=== PATIENT | female | born 1975 | race Caucasian/White ===

== ENCOUNTER → 2018-06-05 16:15 | Outpatient (CLI) | payer BC, SELFPAY ==
[2018-06-10 09:50] LABS: HPV Reflexed? NOT INDICATED
== END ==
PROVIDERS: Visit Provider Obstetrics & Gynecology
DX: Z12.4 Encounter for screening for malignant neoplasm of cervix (principal)
CPT/HCPCS: 88175; G0145

== ENCOUNTER → 2020-07-20 | Outpatient (CLI) | payer BC, SELFPAY ==
[2016-10-27 04:49] VITALS: BMI 29.2
[2020-07-25 18:04] LABS: HPV Reflexed? NOT INDICATED
== END | disposition home or self-care (01) ==
LOC: LABSPEC 07-21 08:52
PROVIDERS: Visit Provider Obstetrics & Gynecology
DX: Z12.4 Encounter for screening for malignant neoplasm of cervix (principal)
CPT/HCPCS: 88175; G0145

== ENCOUNTER → 2021-10-05 06:58 | Outpatient (CLI) | payer BC, SELFPAY ==
--- NOTE | 2021-10-05 07:02 | BI_ITS ---
MAMMOGRAPHY - BILATERAL SCREENING REASON FOR EXAM: Female, 46 years old. Routine annual screening examination. PERTINENT HISTORY: Non-contributory. TECHNIQUE: Digital bilateral breast andrez (3D mammographic acquisition) in the CC and MLO projections. 2-D mediolateral oblique (MLO) and craniocaudad (CC) views of both breasts were obtained. CAD: Full Field Digital Mammography with Computer Added Detection was performed. COMPARISON: None. Baseline examination. FINDINGS: Breast Composition: The breasts are heterogeneously dense, which may obscure small masses. There are no dominant masses or suspicious calcifications. No other significant abnormalities are identified. BI/SCRN MAMM (CAD)W/ANDREZ BILAT IMPRESSION: Negative screening mammogram. Yearly followup mammogram recommended. (A) ASSESSMENT CATEGORY: BIRADS Category 1: Negative. A letter regarding these results will be sent to the patient by the facility within 30 days. Approximately 10% of breast cancers are not detected by mammography. A normal mammogram should not delay biopsy of a clinically suspicious abnormality. [id number] Electronically Signed: Jonh Sanchez MD at 8:27 EST , Service support ,
== END ==
PROVIDERS: PCP Obstetrics & Gynecology; Referring Provider Obstetrics & Gynecology; Visit Provider Obstetrics & Gynecology
DX: Z12.31 Encounter for screening mammogram for malignant neoplasm of breast (principal)
CPT/HCPCS: 77063; 77067

== ENCOUNTER → 2022-10-19 | Outpatient (CLI) | payer BC, SELFPAY ==
--- NOTE | 2022-10-19 07:17 | BI_ITS ---
MAMMOGRAPHY - BILATERAL SCREENING REASON FOR EXAM: Female, 47 years old. Routine annual screening examination. PERTINENT HISTORY: Non-contributory. TECHNIQUE: Digital bilateral breast andrez (3D mammographic acquisition) in the CC and MLO projections. 2-D mediolateral oblique (MLO) and craniocaudad (CC) views of both breasts were obtained. CAD: Full Field Digital Mammography with Computer Added Detection was performed. COMPARISON: Comparison is made with prior study dated 10/05/2021. FINDINGS: Breast Composition: The breasts are heterogeneously dense, which may obscure small masses. There are no dominant masses or suspicious calcifications. No other significant abnormalities are identified. There has been no significant change since the prior study. BI/SCRN MAMM (CAD)W/ANDREZ BILAT IMPRESSION: Stable bilateral screening mammogram. Yearly follow-up mammogram recommended. (A) ASSESSMENT CATEGORY: BIRADS Category 1: Negative. A letter regarding these results will be sent to the patient by the facility within 30 days. Approximately 10% of breast cancers are not detected by mammography. A normal mammogram should not delay biopsy of a clinically suspicious abnormality. [id number] Electronically Signed: Jonh Sanchez MD at 9:10 EST ,
== END | disposition home or self-care (01) ==
LOC: OPBI 07:14
PROVIDERS: PCP Student in an Organized Health Care Education/Training Program; Visit Provider Student in an Organized Health Care Education/Training Program
DX: Z12.31 Encounter for screening mammogram for malignant neoplasm of breast (principal)
CPT/HCPCS: 77063; 77067

== ENCOUNTER → 2025-01-19 | Outpatient (CLI) | payer BC, SELFPAY | END | disposition home or self-care (01) | LOC: LABSPEC 09:31 | PROVIDERS: PCP Student in an Organized Health Care Education/Training Program; Visit Provider Physician Assistant | DX: R30.0 Dysuria (principal) | CPT/HCPCS: 87086; 87088 ==

== ENCOUNTER → 2025-08-30 | Outpatient (CLI) | payer BC, SELFPAY ==
[2025-09-01 11:08] LABS: HPV APTIMA, High Risk Negative (Negative)
== END | disposition home or self-care (01) ==
LOC: LABSPEC 11:43
PROVIDERS: PCP Student in an Organized Health Care Education/Training Program; Visit Provider Obstetrics & Gynecology
DX: Z12.4 Encounter for screening for malignant neoplasm of cervix (principal)
CPT/HCPCS: 87624; 88175; G0145

== ENCOUNTER → 2025-10-05 | Outpatient (CLI) | payer BC, SELFPAY ==
--- OUTSIDE RECORDS SUMMARY | 2025-10-05 07:17 | XMS RPT_ITS | CCD ---
Author Organization [facility] Care Team Providers Care Apprentice Photographer Name Role Phone Dr. Danelle Rajan DO Primary Care Provider Dr. Danelle Rajan DO Referring Provider [phone] Daniel Warner Attending Provider [phone] Danelle Rajan Primary Care Unavailable Danelle Rajan Referring Unavailable Daniel Warner Attending Unavailable Gabriela Rodriguez Attending Unavailliv e Danelle Rajan Primary Care Unavailable Danelle Rajan Referring Unavailable Danelle Rajan Primary Care Unavailable Daniel Warner Attending Unavailable Allergies Allergy Classification Reported Allergen(s) Allergy Type Date of Onset Reaction(s) Facility (1 source) Penicillins Allergy to substance [address] [facility] (2 sources) Environmental Allergies: Uncoded; Translations: [Environmental Allergies: Uncoded] Allergy to substance 5 Other [facility] (1 source) Adhesive agent Drug allergy (disorder) 5 [facility] Repository (1 source) Penicillins Drug allergy (disorder) [address] [place] [address] Repository Medications Current Medications Medication Drug Class(es) Dates Sig (Normalized) Sig (Original) ELDERBERRY FRUIT (1 source) Start: 01-19-2025 Elderberry Fruit 350 mg capsule Active mg PO January 19, 2025 12:00am Multivitamin (Multiple Vitamins) 1 EACH tablet (1 source) Start: 10-27-2016 take 1 tablet by mouth once daily Multivitamin (Multiple Vitamins) 1 EACH tablet Active 1 NMA PO DAILY October 27, 2016 1:00am Problems Problem Classification Problem Date Documented Da te Episodic/Chronic Genitourinary symptoms and ill-defined conditions (3 sources) Increased frequency of urination; Translations: [Frequency of micturition] Onset: 05-11-2025 01-19-2025 Episodic Results Test Name Value Interpretation Reference Range Facility Urine Cultureon 01-20-2025 [facility] Below infection level. Mixed Gram Pos Gram Neg Org [place] Count 1000-10,000 [facility] Mixed contaminants. Submit a new specimen if indicated. Normal [facility] Comment on above: Performed By: #### M 100.2200 #### [facility] [address] [place], [place], [address] Laboratory - Chemistry and C hemistry - challengeOrdered By: Daniel Mckeon on 01-19-2025 Bilirubin Ql (U) Negative [facility] Glucose Ql (U) Negative [facility] Ketones Ql (U) Negative [facility] pH (U) 7.0 [pH] [facility] Specific gravity (U) [Rel density] 1.010 [facility] Urobilinogen (U) [Mass/Vol] 0.0126493 mg/dL [facility] - Hematology and Cell countsOrdered By: Daniel Mckeon on 01-19-2025 Hemoglobin Ql (U) Negative [facility] - Specimen inform ationOrdered By: Daniel Mckeon on 01-19-2025 Clarity (U) Clear [facility] Color (U) YELLOW [facility] - UrinalysisOrder ed By: Daniel Mckeon on 01-19-2025 Nitrite Ql (U) Negative [facility] Protein Ql (U) Negative [facility] No Panel InformationOrdered By: Daniel Mckeon on 01-19-2025 Urine Leukocytes Negatve [facility] Urine Non-Hemolyzed Blood Negative [facility] Urgent Care Visit Reporton 0 01-19-2025 Urgent Care Visit Report [facility] [address], [address] [place], [place] [address] OFFICE VISIT Date of Service: 01/19/25 MR#: [id number] Acct: [id number] Name: MARLENE ANTONIO Rep #: [id number] : 1975 Provider: LILA Rubio Age/Sex: 49/F Location: [facility] Status: Signed Intake Vital Signs 01/19/25 06:12 Height 5 ft 4 in Weight: 190 lb 8 oz BMI 32.7 BP 120/80 Position Sitting Pulse 83 Temp 98.3 F Temp Source Oral Pulse Oximetry (%) 97 Oxygen Delivery Method room air Intake Visit Reasons: Urinary tract infection Accompanied by: Self Allergies Environmental Allergies: Uncoded (seasonal) Allergy (Verified 01/19/25 06:10) Other Penicillins Allergy (Verified 01/19/25 06:10) Hives Medications ???Medication ???Instructions ???Recorded ???Confirmed ???Type multivitamin (Multiple Vitamins 1 ea PO DAILY 10/27/16 01/19/25 Hi story tablet) elderberry fruit 350 mg capsule mg PO 01/19/25 01/19/25 History Nurse's Note: Patient has frequent urination with discomfort in the lower back. Patient also extremely tired. Patient states this has been going on since last sat. PFSH Medical History (Updated 01/19/25 @ 06:51 by Daniel SHARP, PA) Urinary frequency Surgical History (Updated 01/19/25 @ 06:12 by Smitha Borrego MA) Hx of cholecystectomy History of hernia surgery Social History (System 05/29/19 @ 15:28 by Barb Campbell) Smoking Status: Never smoker HPI HPI Details: MARLENE ANTONIO, is a 49 F who presents to the office today for initial evaluation at [facility] for 6 day h/o frequent urination, fatigue, with discomfort in the lower back. Pt notes inability to find comfortable position when lying down. Pt notes having had kidney stone 30 yrs ago, w/ today's complaints comparable to then. No c/o fever, chills, sweats, changes on color/ character of urine or stool, and no new urethral/ vaginal discharge. No complaints of chest pain or shortness of breath or dyspnea on exertion. No suyd-sos-qeizmlw products taken to assist. No other associated symptoms and no relieving/aggravatin g factors. ROS Const Constitutional: No other (As above) Exam Const General: cooperative, healthy appearing and no acute distress Orientation: alert and awake [facility] Head: normal to inspection Ears: hearing grossly normal bilaterally and external ears normal Nose: external nose normal Neck Neck: normal visual inspection and no meningeal signs Chest Chest palpation inspection: normal inspection of the chest Resp Effort Inspection: normal respiratory effort and able to speak in complete sentences Cardio Rate: regular rate Pulses: radial pulses present GI Inspection: normal to inspection General: No CVA tenderness Skin General: no rashes or lesions noted Neuro General: patient alert and patient awake Cognition: normal cognition Speech: speech normal Psych Appearance: grossly normal Mental Status: mental status grossly normal Mood: congruent mood Affect: normal affect Speech and Movement: speech and movement normal Attitude: cooperative Results POC Urinalysis Dip (Clinic) Office Urine Color YELLOW Last Edit by Smitha Borrego MA on 01/19/25 06:24 Office Urine Clarity Clear Last Edit by Smitha Borrego MA on 01/19/25 06:24 Office Urine Glucose Negative Last Edit by Smitha Borrego MA on 01/19/25 06:24 Office Urine Ketones Negative Last Edit by Smitha Borrego MA on 01/19/25 06:24 Off Ur Spec [place] 1.010 Last Edit by Smitha Borrego MA on 01/19/25 06:24 Office Urine pH 7.0 Last Edit by Smitha Borrego MA on 01/19/25 06:24 Office Urine Bilirubin Negative Last Edit by Smitha Borrego MA on 01/19/25 06:24 Office Urine Urobilinogen 0.2 mg/dL Last Edit by Smitha Borrego MA on 01/19/25 06:24 Office Urine Blood Negative Last Edit by Smitha Borrego MA on 01/19/25 06:24 Office Urine Blood Hemolyzed Negative Last Edit by Smitha Borrego MA on 01/19/25 06:24 Office Urine Protein Negative Last Edit by Smitha Borrego MA on 01/19/25 06:24 Office Urine Nitrate Negative Last Edit by Smitha Borrego MA on 01/19/25 06:24 Off Ur Leukocytes Negatve Last Edit by Smitha Borrego MA on 01/19/25 06:24 Coding Level of Care Code Off vis,new,level 2 Diagnoses Urinary frequency R35.0 Assessment and Plan Assessment and Plan (1) Urinary frequency: Status: Acute Plan: Unremarkable urinalysis dip in office today; urine sent to lab for culture and sensitivity. Supportive measures as instructed today. Should symptoms persist, follow-up with PCP first available appointment and report to ED sooner should symptoms only worsen or any other concerns develop. Patient states acknowledging understanding all the above. This note was generated with Dragon dictation software. It may contain incor (more content not included)... Normal [facility] Urine cultureOrdered By: Camacho Mckeon on 01-19-2025 Bacteria identified Cx Nom (U) Mixed Gram Pos & Gram Neg Org Abnormal [facility] Vital Signs Date Time Vital Sign Value Performing Clinician Araceli nicholas 01-19-2025 06:12-0400 Body height 162.[address] Danelle Rajan DO Work Phone: [facility] 01-19-2025 06:12-0400 Body mass index (BMI) [Ratio] 32.7 kg/m2 Dr. Danelle Rajan DO Work Phone: [facility] 01-19-2025 06:12-0400 Body temperature 98.3 [degF] Dr. Danelle Rajan DO Work Phone: [facility] 01-19-2025 06:12-0400 Body weight 86.[address] Danelle Rajan DO Work Phone: [facility] 01-19-2025 06:12-0400 Diastolic blood pressure 80 mm[Hg] Dr. Danelle Rajan DO Work Phone: [facility] 01-19-2025 06:12-0400 Heart rate 83 /min Dr. Danelle Rajan DO Work Phone: [facility] 01-19-2025 06:12-0400 SaO2% (BldA) [Mass fraction] 97 % Dr. Danelle Rajan DO Work Phone: [facility] 01-19-2025 06:12-0400 Systolic blood pressure 120 mm[Hg] Dr. Danelle Rajan DO Work Phone: [facility] Encounters Encounter Date Encounter Type Care Provider Facility Start: 08-30-2025 ambulatory Gabriela Guptaty:[facility] Start: 01-19-2025 End: 01-19-[address] Danelle Rajan DO Work Phone: [facility] Work Phone: Start: 01-19-2025 End: 01-19-2025 Patient encounter procedure Daniel SHARP -Laboratory, Specimen Work Phone: Start: 01-19-2025 End: 01-19-2025 Patient encounter procedure Daniel SHARP [facility] Work Phone: Start: 01-19-2025 End: 01-19-2025 ambulatory Danelle [place] Facility:[facility] Start: 01-19-2025 End: 01-19-2025 ambulatory [facility] [place] Facility:[facility] Procedures Date Procedure Procedure Detail Performing Clinician Start: 01-19-[address] Channing Rajan DO Work Phone: Payers Date Payer Category Payer Self-pay 2025 Unknown [id number] Self-pay [employer] PAY INSURANCE [id number] Unknown [id number] Unknown [id number] Unknown [id number] Social History Date Type Detail Facility Start: 10-27-2016 Tobacco smoking stat [facility] Never smoked tobacco (finding) [facility] Start: 01-25-2025 Sex Female (finding) [facility] Start: 1975 Sex Assigned At Female W [facility] Evaluation note 01-19-2025 Note Date & Type Note Facility 01-19-2025 Evaluation note Diagnosis Onset Date Resolution Urinary frequency acute January 192024 6:09am [facility] Work Phone: Reason for referral (narrative) Note Date & Type Note Facility Reason for referral (narrative) No reason for referral information available [facility] Work Phone: Chief Complaint and Reason for Visit Chief Complaint Admit Date Urinary tract infection January 19, 2025 6:09am Reason for Visit Admit Date Urinary frequency January 19, 2025 6:09 am Advance Directives No Advanced Directives Records Found Advance Directive Response Recorded Date/ Time Advance Directives No October 27, 2016 5:52am Summary Purpose Family History No Family History Records Found Additional Source Comments Care Teams (unrecognized sec tion and content) Team Status: Active Member Role Status Dates No Primary Care Physician Family Provider Active Dr. Danelle Rajan DO Primary Care Provider Active Team Status: Inactive Member Role Status Dates Dr. Danelle Rajan DO Primary Care Provider Active Start: January 19, 2025 End: January 19, 2025 Dr. Danelle Rajan DO Referring Provider Active Start: January 19, 2025 End: January 19, 2025 LILA Mortensen Attending Provider Active Start: January 19, 2025 End: January 19, 2025 Team Status: Inactive Member Role Status Dates Dr. Danelle Rajan DO Primary Care Provider Active Start: January 19, 2025 End: January 19, 2025 LILA Mortensen Attending Provider Active Start: January 19, 2025 End: January 19, 2025 Goals (unrecognized section and content) Goals may be documented in a n alternate section INFORMATION SOURCE (unrecogn ized section and content) DATE CREATED AUTHOR 08/26/2025 [facility] FOR RECORDS PERTAINING TO PATIENTS WHO ARE OR HAVE BEEN ENROLLED IN A CHEMICAL DEPENDENCY/SUBSTANCEABUSE PROGRAM, SOME INFORMATION MAY BE OMITTED. This clinical summary was aggregated from multiple sources. Caution should be exercised in using it in the provision of clinical care. This summary normalizes information from multiple sources, and as a consequence, information in this document may materially change the coding, format and clinical context of patient data. In addition, data may be omitted in some cases. CLINICAL DECISIONS SHOULD BE BASED ON THE PRIMARY CLINICAL RECORDS. [employer] provides no warranty or guarantee of the accuracy or completeness of information in this document.
--- NOTE | 2025-10-05 07:30 | BI_ITS ---
EXAM: SCRN MAMM (CAD)W/ANDREZ BILAT DATE: 10/05/2025 CLINICAL HISTORY: F, Age 50 y/o , BREAST CANCER SCREENING TECHNIQUE: Procedure Code: [id number] Modality: MG Procedure: SCRN MAMM (CAD)W/ANDREZ BILAT COMPARISON: Prior exam(s) were compared FINDINGS: TISSUE DENSITY: The breasts are heterogeneously dense, which may obscure small masses. Bilateral Breast Mammographic Findings: Left breast: There are grouped calcifications in the upper-outer left breast. Recommend diagnostic left breast mammogram magnification CC/ML views. Right breast: No significant masses, calcifications or other abnormalities are identified. BI/SCRN MAMM (CAD)W/ANDREZ BILAT IMPRESSION: Additional diagnostic imaging is recommended of the left breast as described ab ove. No mammographic evidence of malignancy in the right breast. OVERALL FINAL ASSESSMENT BI-RADS 0: INCOMPLETE - NEED ADDITIONAL IMAGING EVALUATION. RECOMMENDATION: Additional Views obtained/call backs Additional Recommendation none A letter with findings and recommendations will be mailed to the patient. Reading Location: [id number]
== END | disposition home or self-care (01) ==
LOC: OPBI 07:12
PROVIDERS: PCP Student in an Organized Health Care Education/Training Program; Referring Provider Obstetrics & Gynecology; Visit Provider Obstetrics & Gynecology
DX: Z12.31 Encounter for screening mammogram for malignant neoplasm of breast (principal)
CPT/HCPCS: 77063; 77067